=== PATIENT | male | born 1975 | race Two or more races ===

== ENCOUNTER 2021-11-24 04:32 | Emergency (ER) | payer BC ==
[~2021-11-24] VITALS: Ht 172.7 cm; Wt 80.0 kg
[2021-11-24] MEDS ORDERED: ACETAMINOPHEN 325MG TABLET PO ONE (06:00)
[2021-11-24] MEDS ORDERED: TOPUD PO (07:28)
[2021-11-24] MEDS ORDERED: ACETAMINOPHEN 325MG TABLET PO SCH (07:45)
[2021-11-24 08:10] VITALS: BP 150/62
== END 2021-11-24 08:33 | disposition home or self-care (01) ==
LOC: ER 04:32
DX: G89.29 Other chronic pain (principal); M79.672 Pain in left foot; M79.671 Pain in right foot
CPT/HCPCS: 73630; 99283

== ENCOUNTER 2021-12-07 21:11 | Emergency (ER) | payer BC ==
[~2021-12-07] VITALS: Ht 182.9 cm; Wt 81.6 kg
[~2021-12-07 21:11] MED LIST: TOPUD PO
[2021-12-07 21:33] VITALS: BP 126/70
[2021-12-07] MEDS ORDERED: TETANUS, DIPHTHERIA, PERTUSSIS VAC/PF 0.5ML (>10YR OLD) IM ONE (23:30)
== END 2021-12-08 00:44 ==
LOC: ER 21:11
DX: S31.040A Puncture wound with foreign body of lower back and pelvis without penetration into retroperitoneum, initial encounter (principal); E11.649 Type 2 diabetes mellitus with hypoglycemia without coma; Y35.833A Legal intervention involving a conducted energy device, suspect injured, initial encounter; Y93.89 Activity, other specified; Y92.89 Other specified places as the place of occurrence of the external cause
CPT/HCPCS: 82962; 90471; 90715; 99284